=== PATIENT | female | born 1950 | race Caucasian/White ===

== ENCOUNTER 2019-01-12 10:48 | Emergency (ER) | payer MEDICARE, OTHER ==
[~2019-01-12] VITALS: Ht 160 cm; Wt 77.1 kg
[2019-01-12] MEDS ORDERED: 5-HTP100 MG PO (11:43)
[2019-01-12] MEDS ORDERED: VENTOLIN HFA18 GM INH (11:43)
[2019-01-12] MEDS ORDERED: INCRUSE ELLI62.5 MCG IH (11:43)
[2019-01-12] MEDS ORDERED: OMEPRAZOLE20 MG PO (11:43)
[2019-01-12] MEDS ORDERED: SYMBICORT 16010.2 GM INH (11:44)
[2019-01-12] MEDS ORDERED: MELATONIN5 M2 PO (11:45)
[2019-01-12] MEDS ORDERED: VALERIAN ROOT500 MG PO (11:45)
[2019-01-12] MEDS ORDERED: PREMARIN0.625 MG PO (11:46)
[2019-01-12] MEDS ORDERED: TIZANIDINE HCL4 M1 PO (11:46)
[2019-01-12] MEDS ORDERED: TIROSINT75 MCG PO (11:46)
[2019-01-12] MEDS ORDERED: CYTOMEL5 MCG PO (11:46)
[2019-01-12] MEDS ORDERED: MACROBID 100 M100 MG PO (13:42)
== END 2019-01-12 14:00 | disposition home or self-care (01) ==
LOC: ED 10:48
DX: N39.0 Urinary tract infection, site not specified (principal); R19.7 Diarrhea, unspecified; E03.9 Hypothyroidism, unspecified; J44.9 Chronic obstructive pulmonary disease, unspecified; Z87.891 Personal history of nicotine dependence; Z90.710 Acquired absence of both cervix and uterus; Z91.038 Other insect allergy status; Z88.0 Allergy status to penicillin; Z88.6 Allergy status to analgesic agent; Z88.1 Allergy status to other antibiotic agents; Z91.040 Latex allergy status; Z91.018 Allergy to other foods; Z91.09 Other allergy status, other than to drugs and biological substances; Z88.8 Allergy status to other drugs, medicaments and biological substances; Z79.899 Other long term (current) drug therapy
CPT/HCPCS: 74177; 80053; 81001; 82150; 83690; 84443; 85025; 87502; 96360; 99284-25; J7030; Q9967

== ENCOUNTER 2019-01-14 11:41 | Emergency (ER) | payer MEDICARE, OTHER ==
[~2019-01-14] VITALS: Ht 160 cm; Wt 77.1 kg
--- OUTSIDE RECORDS SUMMARY | ~2019-01-14 | XMS | Clinical Summary ---
Demographics + + + | Address | [facility] [address] | | | [place] [address] | + + + | Home Phone | | + + + | Preferred Language | Unknown | + + + | Marital Status | | + + + | Baptist Affiliation | 1009 | + + + | Race | Unknown | + + + | Ethnic Group | Unknown | + + + Author + + + | Author | [facility] | | | and [place] | + + + | Organization | [facility] | | | and [place] | + + + | Address | Unknown | + + + | Phone | Unavailable | + + + Support + + + + + | Name | Relationship | Address | Phone | + + + + + | Ria Nguyen | ECON | [address] | | | th A | | [place] [address] | | + + + + + | Dottie Nguyen | ECON | Unknown | Unavailable | | e | | | | + + + + + Care Team Providers + +------+ + | Care Small Battery Plate Assembler Name | Role | Phone | + +------+ + | King Naegl MD | PP | | + +------+ + Allergies + + + + + + | Active Allergy | Reactions | Severity | Noted | Comments | | | | | Date | | + + + + + + | Acetaminophen | Other (See Comments) | Low | 09/16/20 | Severe sweats | | | | | 16 | | + + + + + + | Adhesive & Tape | Hives | Medium | 09/30/20 | | | | | | 16 | | + + + + + + | Bee Venom | Itching | Medium | 09/30/20 | Every time there | | | | | 16 | is a larger and | | | | | | larger welt, now | | | | | | carries an epi-pen | + + + + + + | Celecoxib | Hives | Medium | 08/23/20 | | | | | | 16 | | + + + + + + | Gabapentin | Swelling | Medium | /11/19 | | | | | | 17 | | + + + + + + | Grapefruit | | | / | | | | | | 18 | | + + + + + + | Latex | Hives | Medium | / | | | | | | 16 | | + + + + + + | Lemon | Hives | | 11/11/19 | | | | | | 18 | | + + + + + + | Ewiiaapaayp | | | 11/13/19 | | | | | | 18 | | + + + + + + | Methocarbamol | Swelling, | High | 11/12/19 | Extreme shortness | | | Anaphylaxis | | 18 | of breath Had SOB | + + + + + + | Payette | Hives | Medium | 11/11/19 | | | | | | 18 | | + + + + + + | Oxycodone | Hives | Medium | 08/24/20 | | | | | | 16 | | + + + + + + | Penicillins | Hives, Nausea Only | Medium | 09/16/20 | | | | | | 16 | | + + + + + + | Pineapple | | | 11/13/19 | | | | | | 18 | | + + + + + + | Massillon | | | 11/13/19 | | | | | | 18 | | + + + + + + | Sulfa Antibiotics | | | | | + + + + + + | Tomato | | | 11/13/19 | | | | | | 18 | | + + + + + + Current Medications + + +--------+---------+------+------+-------+ | Prescription | Sig. | Disp. | Refills | Star | End | Statu | | | | | | t | Date | s | | | | | | Date | | | + + +--------+---------+------+------+-------+ | estrogens, | Take 0.625 mg by | | | | | Activ | | conjugated, | mouth Daily. | | | | | e | | (PREMARIN) 0.625 mg | | | | | | | | tablet | | | | | | | + + +--------+---------+------+------+-------+ | liothyronine | Take 5 mcg by mouth | | | | | Activ | | (CYTOMEL) 5 mcg | Daily. | | | | | e | | tablet | | | | | | | + + +--------+---------+------+------+-------+ | arformoterol | Take 15 mcg by | | | | | Activ | | (BROVANA) 15 MCG/2ML | nebulization Twice | | | | | e | | NEBU | Daily. | | | | | | + + +--------+---------+------+------+-------+ | levothyroxine | Take 100 mcg by | | | | | Activ | | (SYNTHROID, | mouth every morning | | | | | e | | LEVOTHROID) 100 mcg | (before breakfast). | | | | | | | tablet | | | | | | | + + +--------+---------+------+------+-------+ | VALERIAN ROOT PO | Take 400 mg by mouth | | | | | Activ | | | nightly. | | | | | e | + + +--------+---------+------+------+-------+ | tiZANidine | Take 1 tablet by | 90 | 3 | 12/0 | | Activ | | (ZANAFLEX) 4 mg | mouth every 6 hours | tablet | | 3/20 | | e | | tablet | as needed. | | | 16 | | | + + +--------+---------+------+------+-------+ | potassium chloride | Take 20 mEq by mouth | | 11 | 07/1 | | Activ | | (K-DUR) 20 mEq ER | as needed. | | | 8/20 | | e | | tablet | | | | 17 | | | + + +--------+---------+------+------+-------+ | INCRUSE ELLIPTA | Inhale 1 puff into | | 11 | 08/1 | | Activ | | 62.5 MCG/INH inhaler | the lungs Daily. | | | 7/20 | | e | | | | | | 17 | | | + + +--------+---------+------+------+-------+ | HYDROmorphone | Take 4 mg by mouth | | | | | Activ | | (DILAUDID) 4 MG | every 6 hours as | | | | | e | | tablet | needed for Pain. | | | | | | + + +--------+---------+------+------+-------+ | melatonin 5 mg | Take by mouth | | | | | Activ | | tablet | nightly as needed | | | | | e | | | for Insomnia. | | | | | | + + +--------+---------+------+------+-------+ Active Problems + + + | Problem | Noted Date | + + + | Acute bronchitis | 08/08/2018 | + + + | Chronic obstructive lung disease (HCC) | 08/08/2018 | + + + | Chronic pain | 08/08/2018 | + + + | Dyspnea | 08/08/2018 | + + + | Environmental allergies | 08/08/2018 | + + + | Exacerbation of asthma | 08/08/2018 | + + + | Obstructive sleep apnea syndrome | 08/08/2018 | + + + | Pneumonia | 08/08/2018 | + + + | Disorder of adrenal gland (HCC) | 03/21/2018 | + + + | Primary fibromyalgia syndrome | 03/21/2018 | + + + | S/P cervical spinal fusion | 02/01/2018 | + + + | Hypoxemia requiring supplemental oxygen | 11/12/2017 | + + + | H/O allergy to latex | 11/11/2017 | + + + | Chronic narcotic dependence - fentaNYL (DURAGESIC) Patch | 11/11/2017 | + + + | COPD (chronic obstructive pulmonary disease) (HCC) | 11/11/2017 | + + + + + | Overview: Overview: | | FEV1 of 72% 11/28/13 | + + + + + | Pain of left lower leg | 11/02/2017 | + + + | Lower leg pain | 11/02/2017 | + + + | Cervical subluxation, subsequent encounter | 09/17/2017 | + + + | Adrenal insufficiency (HCC) | 09/30/2016 | + + + | Current chronic use of systemic steroids | 09/30/2016 | + + + | Foraminal stenosis of cervical region | 09/16/2016 | + + + | Spondylolisthesis of lumbar region | 08/24/2016 | + + + | Lumbar radiculopathy | 08/24/2016 | + + + | Lumbar facet arthropathy | 08/24/2016 | + + + | Foraminal stenosis of lumbar region | 08/24/2016 | + + + | Cervical radiculopathy | 08/24/2016 | + + + + + | Overview: Cervical radiculopathy (M54.12), | | Cervical myelopathy (HCC) (G95.9), | | Foraminal stenosis of cervical region (M99.81), | | Cervical subluxation, subsequent encounter (S13.100D), | | Sacroiliac joint pain (M53.3) | + + + + + | Cervical myelopathy (HCC) | 08/24/2016 | + + + | Obesity, Class III, BMI 40-49.9 (Morbid obesity) | 08/24/2016 | + + + | Asthma - INHALERS Used | 03/08/2014 | + + + | Empyema lung (HCC) | 03/08/2014 | + + + | Obstructive chronic bronchitis with exacerbation (HCC) | 02/26/2014 | + + + | Acute kidney injury (HCC) | 02/24/2014 | + + + | Acute respiratory failure (HCC) | 02/24/2014 | + + + | Exudative pleural effusion | 02/24/2014 | + + + | Leucocytosis | 02/24/2014 | + + + | Cough | 10/31/2012 | + + + | JORGE (obstructive sleep apnea) on CPAP | | + + + + + | Overview: On CPAP. On day of surgery 09/30/2016 for TLIF, | | patient acknowledges she has been using much less frequently | | lately. | + + + +---+ | Hypothyroidism | | + +---+ | H/O Migraine headaches | | + +---+ | Anxiety | | + +---+ | DDD (degenerative disc disease), lumbar | | + +---+ | Post traumatic stress disorder (PTSD) | | + +---+ | Chronic insomnia | | + +---+ | Fibromyalgia | | + +---+ | Sacroiliac joint pain | | + +---+ | Other spondylosis with radiculopathy, lumbar region | | + +---+ + + | Overview: WITH LEFT FOOT DROP | + + + +---+ | Spinal stenosis, lumbar region | | + +---+ + + | Overview: Problem List Wildlife Biologist Utility | + + + +---+ | Other intervertebral disc degeneration, lumbar region | | + +---+ Immunizations + + + + | Name | Dates Previously Given | Next Due | + + + + | INFLUENZA, | 08/20/2014 | | | UNSPECIFIED | | | | FORMULATION | | | + + + + Family History + + +------+ + | Medical History | Relation | Name | Comments | + + +------+ + | COPD | Brother | | | + + +------+ + | Cancer | Brother | | New since last visit 11/02/17, lung | + + +------+ + | No Known Problems | Child | | | + + +------+ + | No Known Problems | Child | | | + + +------+ + | No Known Problems | Child | | | + + +------+ + | Diabetes | Father | | | + + +------+ + | Heart disease | Maternal | | | | | Grandfath | | | | | er | | | + + +------+ + | Heart disease | Maternal | | | | | Grandmoth | | | | | er | | | + + +------+ + | No Known Problems | Mother | | | + + +------+ + | Alcohol abuse | Paternal | | | | | Grandfath | | | | | er | | | + + +------+ + | Cancer | Paternal | | CANCER | | | Grandfath | | | | | er | | | + + +------+ + | Diabetes | Paternal | | | | | Grandmoth | | | | | er | | | + + +------+ + | Breast cancer | Sister | | | + + +------+ + | Fibromyalgia | Sister | | | + + +------+ + | Fibromyalgia | Sister | | | + + +------+ + | Fibromyalgia | Sister | | | + + +------+ + + +------+ + + | Relation | Name | Status | Comments | + +------+ + + | Brother | | Alive | | + +------+ + + | Brother | | | | + +------+ + + | Brother | | | | + +------+ + + | Child | | Alive | | + +------+ + + | Child | | Alive | | + +------+ + + | Child | | Alive | | + +------+ + + | Child | | | | + +------+ + + | Child | | | | + +------+ + + | Child | | | | + +------+ + + | Father | | | | | | | (Age | | | | | 75) | | + +------+ + + | Maternal Grandfather | | | | + +------+ + + | Maternal Grandmother | | | | | | | (Age | | | | | 78) | | + +------+ + + | Mother | | Other | NOT LISTED | + +------+ + + | Paternal Grandfather | | | | + +------+ + + | Paternal Grandmother | | | | | | | (Age | | | | | 76) | | + +------+ + + | Sister | | Alive | | + +------+ + + | Sister | | Alive | | + +------+ + + | Sister | | Alive | | + +------+ + + | Sister | | | | + +------+ + + | Sister | | | | + +------+ + + | Sister | | | | + +------+ + + | Sister | | | | + +------+ + + Social History + + + +--------+ + | Tobacco Use | Types | Packs/Day | Years | Date | | | | | Used | | + + + +--------+ + | Former Smoker | Cigarettes | 1 | 25 | Quit: 10/31/1998 | + + + +--------+ + + +---+---+---+ | Smokeless Tobacco: | | | | | Never Used | | | | + +---+---+---+ + + +---------+ + | Alcohol Use | Drinks/We | oz/Week | Comments | | | ek | | | + + +---------+ + | Yes | 0 | 0.0 | SOCIAL | | | Standard | | | | | drinks or | | | | | | | | | | equivalen | | | | | t | | | + + +---------+ + + + + | Sex Assigned at | Date Recorded | | | | + + + | Not on file | | + + + Last Filed Vital Signs + + + + | Vital Sign | Reading | Time Taken | + + + + | Blood Pressure | 110/42 | 08/08/20181109 PDT | + + + + | Pulse | 56 | 08/08/20181109 PDT | + + + + | Temperature | 35.7 C (96.3 F) | 11/13/2017721 PST | + + + + | Respiratory Rate | 18 | 11/13/2017947 PST | + + + + | Oxygen Saturation | 96% | 11/13/2017947 PST | + + + + | Inhaled Oxygen | - | - | | Concentration | | | + + + + | Weight | 93.9 kg (207 lb) | 08/08/20181109 PDT | + + + + | Height | 160 cm (5' 3") | 08/08/20181109 PDT | + + + + | Body Mass Index | 36.67 | 08/08/20181109 PDT | + + + + Plan of Treatment + + + + + | Health Maintenance | Due Date | Last Done | Comments | + + + + + | Hepatitis C | | | | | Screening | 0 | | | + + + + + | Vaccine: | | | | | Dtap/Tdap/Td (1 - | 9 | | | | Tdap) | | | | + + + + + | BREAST CANCER | | | | | SCREENING (MAMM Q2 | 0 | | | | YEARS 50-74) | | | | + + + + + | Colorectal Cancer | | | | | Screening | 0 | | | | (Colonoscopy) | | | | + + + + + | Vaccine: Zoster (1 | | | | | of 2) | 0 | | | + + + + + | Vaccine: | | | | | Pneumococcal 65+ | 5 | | | | Low/Medium Risk (1 | | | | | of 2 - PCV13) | | | | + + + + + | Adult Annual | | | | | Wellness Visit | 6 | | | + + + + + | Vaccine: Influenza | | 08/20/2014 | | | (#1) | 8 | | | + + + + + Implants + +--------+--------+ +--------+--------+--------+ | Implanted | Type | Area | Manufacture | Device | Expira | Model | | | | | r | | tion | / | | | | | | Identi | Date | Serial | | | | | | fier | | / Lot | + +--------+--------+ +--------+--------+--------+ | Bone Canc Chip 15cc 4-10mm - | Bone | Left: | RTI | | 05/28/ | [id number] | | [id number]: Qty: 1 | | Spine | BIOLOGICS | | 2020 | | | on 09/30/2016 by Ric Gould | | Lumbar | INC - RBIO | | | /[id number] | | MD Ramos | | | | | | 2-028 | | | | | | | | / | + +--------+--------+ +--------+--------+--------+ | Imp Spn Spcr 6 Deg 10x27 - | Generi | Left: | [employer] - | | 03/30/ | [id number] | | [id number]: Qty: 1 on | c | Spine | MEDT | | 4 | 7 / | | 09/30/2016 by Ric Gould, | | Lumbar | | | | /51CC | | MD | | | | | | | + +--------+--------+ +--------+--------+--------+ | Parth Perc Str Ccm 4.85i07tc - | Generi | Left: | [employer] - | | | [id number] | | [id number]: Qty: 2 on | c | Spine | MEDT | | | 035 / | | 09/30/2016 by Ric Gould, | | Lumbar | | | | / | | MD | | | | | | | + +--------+--------+ +--------+--------+--------+ | Imp Spn Plt Ti Zevo 19mm 1lvl | Generi | N/A: | [employer] - | | | [id number] | | - [id number]: Qty: 1 | c | Spine | MEDT | | | 9 / / | | on 11/11/2017 by Ric Gould | | Cervic | | | | | | MD Ramos | | al | | | | | + +--------+--------+ +--------+--------+--------+ | Imp Sangeeta Shore [id number] - | Generi | N/A: | [employer] - | | 07/26/ | [id number] | | [id number]: Qty: 1 | c | Spine | MEDT | | 2024 | 1 / | | on 11/11/2017 by Ric Gould | | Bill | | | | /[id number] | | MD Ramos | | al | | | | | + +--------+--------+ +--------+--------+--------+ | Graft Infuse Bone Kit Xs - | Graft | Left: | SOFAMOR | | 09/29/ | [id number] | | [id number]: Qty: 1 on | | Spine | DANEK - DIV | | 2016 | 0 / | | 09/30/2016 by Ric Gould, | | Lumbar | [employer] | | | /[id number] | | | | | - SFDK | | | [id number] | + +--------+--------+ +--------+--------+--------+ | Sb Alan Pls c Aseptic | Graft | N/A: | [employer] - | | 04/15/ | [id number] | | - [id number]: Qty: | | Spine | MEDT | | 2019 | | | 1 on 11/11/2017 by Bryanna, | | Tanoic | | | | /[id number] | | Ric Beasley MD | | al | | | | 9-050 | | | | | | | | / | + +--------+--------+ +--------+--------+--------+ | Screw Set Slra Perc Ti 4.75 - | Screw | Left: | [employer] - | | | [id number] | | [id number]: Qty: 4 | | Spine | MEDT | | | 0 / / | | on 09/30/2016 by Ric Gould | | Lumbar | | | | | | MD Ramos | | | | | | | + +--------+--------+ +--------+--------+--------+ | Screw 4.75 Xtb Yudelka Mas | Screw | Left: | [employer] - | | | [id number] | | 7.5x50 - [id number]: | | Spine | MEDT | | | [id number] | | Qty: 4 on 09/30/2016 by Bryanna, | | Lumbar | | | | / / | | Ric Beasley MD | | | | | | | + +--------+--------+ +--------+--------+--------+ | Screw D-Thrd Slf-Drl 3.5x13mm | Screw | N/A: | [employer] - | | | [id number] | | - [id number]: Qty: 4 | | Spine | MEDT | | | 3 / / | | on 11/11/2017 by Ric Gould | | Bill | | | | | | MD Ramos | | al | | | | | + +--------+--------+ +--------+--------+--------+ Results Not on filefrom Last 3 Months Insurance + +--------+ +--------+ +---------+ | Payer | Benefi | Subscriber | Type | Phone | Address | | | t Plan | ID | | | | | | / | | | | | | | Group | | | | | + +--------+ +--------+ +---------+ | MEDICARE | MEDICA | [id number] | Medica | [phone] | | | RE | | re | [phone] | | | | PART A | | | | | | | AND B | | | | | + +--------+ +--------+ +---------+ | | CHAMPV | [id number] | Indemn | [phone] | | | A | | ity | [phone] | | + +--------+ +--------+ +---------+ + +--------+ +--------+ + + | Guarantor Name | Accoun | Relation to | Date | Phone | Billing Address | | | t Type | Patient | of | | | | | | | | | | + +--------+ +--------+ + + | SWETHA NGUYEN | Person | Self [birth year] Home: | [address] | | [place] | al/Emmanuel | | 1950 | [phone] | [place] [address] | | | humble | | | [phone] | | + +--------+ +--------+ + +
--- OUTSIDE RECORDS SUMMARY | ~2019-01-14 | XMS | Encounter Summary ---
Demographics + + + | Address | [facility] [address] | | | [place] [address] | + + + | Home Phone | | + + + | Preferred Language | Unknown | + + + | Marital Status | | + + + | Yarsani Affiliation | 1009 | + + + | Race | Unknown | + + + | Ethnic Group | Unknown | + + + Author + + + | Author | [facility] [employer] | + + + | Organization | [facility] [employer] | + + + | Address | Unknown | + + + | Phone | Unavailable | + + + Support + + + + + | Name | Relationship | Address | Phone | + + + + + | James Nguyen | [address] | | | [place] | | [place] [address] | | + + + + + | Dottie Nguyen | ECON | Unknown | | | e | | | | + + + + + | Maria Alejandra Almonte | ECON | Unknown | | + + + + + | Hema Nagel | ECON | Unknown | | + + + + + Care Team Providers + +------+ + | Care Tongue Trimmer Name | Role | Phone | + +------+ + | Elia Hernandez MD | PCP | | + +------+ + Reason for Visit +--------+ + | Reason | Comments | +--------+ + | Triage | thyroid crisis | +--------+ + Encounter Details +--------+ + + + + | Date | Type | Department | Care Team | Description | +--------+ + + + + | 01/12/ | Telephone | [facility] | Adri Cannon MD | Triage (thyroid | | 2019 | | Endocrinology [address] | [address] | crisis) | | | | [address] | [place], [place] | | | | | [place], [place] | [address] | | | | | [address] | | | | | | [phone] | | | +--------+ + + + + Social History + +-------+ +--------+ + | Tobacco Use | Types | Packs/Day | Years | Date | | | | | Used | | + +-------+ +--------+ + | Former Smoker | | 1 | 30 | Quit: 02/24/1999 | + +-------+ +--------+ + + +---+---+---+ | Smokeless Tobacco: | | | | | Never Used | | | | + +---+---+---+ + + +---------+ + | Alcohol Use | Drinks/We | oz/Week | Comments | | | ek | | | + + +---------+ + | No | | | | + + +---------+ + + + + | Sex Assigned at | Date Recorded | | | | + + + | Not on file | | + + + as of this encounter Plan of Treatment +--------+---------+ + + + | Date | Type | Specialty | Care Team | Description | +--------+---------+ + + + | 03/20/ | Office | Endocrinology | Adri Cannon MD | | | 2019 | Visit | | [address] | | | | | | [place] | | | | | | [id number] | | | | | | | | +--------+---------+ + + + as of this encounter Visit Diagnoses Not on filein this encounter"
--- OUTSIDE RECORDS SUMMARY | ~2019-01-14 | XMS | Encounter Summary ---
Demographics + + + | Address | [facility] [address] | | | [place] [address] | + + + | Home Phone | | + + + | Preferred Language | Unknown | + + + | Marital Status | | + + + | Jain Affiliation | 1009 | + + + | Race | Unknown | + + + | Ethnic Group | Unknown | + + + Author + + + | Author | [facility] [employer] [facility] | + + + | Organization | [facility] [employer] [facility] | + + + | Address | Unknown | + + + | Phone | Unavailable | + + + Support + + + + + | Name | Relationship | Address | Phone | + + + + + | James Nguyen | [address] | | | [place] | | [place] [address] | | + + + + + [...] Team Providers + +------+ + | Care Glue Drier Operator Name | Role | Phone | + +------+ + | Elia Hernandez MD | PCP | | + +------+ + Reason for Visit + + + | Reason | Comments | + + + | Medication Refill | | + + + Encounter Details +--------+--------+ + + + | Date | Type | Department | Care Team | Description | +--------+--------+ + + + | 12/18/ | Refill | [facility] | Adri Cannon MD | Hot flash, | | 2019 | | Endocrinology [address] | [address] | demetria | | | | [place] [address] | [place], [place] | | | | | [place], [place] | [address] | | | | | [address] | | | | | | [phone] | | | +--------+--------+ + + + Social History + +-------+ [...] [place] | | | | | | [address] | | | | | | | | +--------+---------+ + + + as of this encounter Visit Diagnoses + + | Diagnosis | + + | Hot flash, menopausal | + + | Symptomatic menopausal or female climacteric states | + +"
--- OUTSIDE RECORDS SUMMARY | ~2019-01-14 | XMS | Encounter Summary ---
Demographics + + + | Address | [facility] [address] | | | [place] [address] | + + + | Home Phone | | + + + | Preferred Language | Unknown | + + + | Marital Status | | + + + | Quaker Affiliation | 1009 | + + + | Race | Unknown | + + + | Ethnic Group | Unknown | + + + Author + + + | Author | [facility] | + + + | Organization | [facility] | + + + | Address | Unknown | + + + | Phone | Unavailable | + + + Support + + + + + | Name | Relationship | Address | Phone | + + + + + | James Nguyen | [address] | | | [place] | | [place] [address] | | + + + + + [...] Team Providers + +------+ + | Care Resident Service Coordinator Name | Role | Phone | + +------+ + | Elia Hernandez MD | PCP | | + +------+ + Encounter Details +--------+ + + + + | Date | Type | Department | Care Team | Description | +--------+ + + + + | 11/07/ | Lab | [facility] | Valeria Johnson | Postoperative | | 2019 | Requisition | [address] | A, Data Quality Consultant | hypothyroidism; | | | | [place] [address] | | History of adrenal | | | | [phone] | | insufficiency; | | | | | | Osteopenia of spine | +--------+ + + + + Social [...] + + + as of this encounter Progress Notes Adri Cannon MD - 11/07/2018 9:30 AM Lore morales at appt 11/14in this encounter Plan of Treatment +--------+---------+ + + + | Date | Type | Specialty | Care Team | Description | +--------+---------+ + + + | 03/20/ | Office | Endocrinology | Adri Cannon MD | | | 2019 | Visit | | [address] | | | | | | [place] | | | | | | [address] | | | | | | | | +--------+---------+ + + + as of this encounter Procedures + +--------+ + + + | Procedure Name | Priori | Date/Time | Associated Diagnosis | Comments | | | ty | | | | + +--------+ + + + | CORTISOL, AM | Routin | 11/07/2018 | Postoperative | Results for this | | | e | 9:40 AM | hypothyroidism | procedure are in the | | | | PST | History of adrenal | results section. | | | | | insufficiency | | | | | | Osteopenia of spine | | + +--------+ + + + | ACTH | Routin | 11/07/2018 | Postoperative | Results for this | | | e | 9:40 AM | hypothyroidism | procedure are in the | | | | PST | History of adrenal | results section. | | | | | insufficiency | | | | | | Osteopenia of spine | | + +--------+ + + + | CBC W/AUTO DIFF | Routin | 11/07/2018 | Postoperative | Results for this | | (REFLEX TO MANUAL) | e | 9:40 AM | hypothyroidism | procedure are in the | | | | PST | History of adrenal | results section. | | | | | insufficiency | | | | | | Osteopenia of spine | | + +--------+ + + + | T3, FREE | Routin | 11/07/2018 | Postoperative | Results for this | | | e | 9:40 AM | hypothyroidism | procedure are in the | | | | PST | History of adrenal | results section. | | | | | insufficiency | | | | | | Osteopenia of spine | | + +--------+ + + + | TSH | Routin | 11/07/2018 | Postoperative | Results for this | | | e | 9:40 AM | hypothyroidism | procedure are in the | | | | PST | History of adrenal | results section. | | | | | insufficiency | | | | | | Osteopenia of spine | | + +--------+ + + + | T4, FREE | Routin | 11/07/2018 | Postoperative | Results for this | | | e | 9:40 AM | hypothyroidism | procedure are in the | | | | PST | History of adrenal | results section. | | | | | insufficiency | | | | | | Osteopenia of spine | | + +--------+ + + + | COMPREHENSIVE | Routin | 11/07/2018 | Postoperative | Results for this | | METABOLIC PANEL | e | 9:40 AM | hypothyroidism | procedure are in the | | | | PST | History of adrenal | results section. | | | | | insufficiency | | | | | | Osteopenia of spine | | + +--------+ + + + in this encounter Results Cortisol, AM (11/07/2018 9:40 AM) + +-------+ + + | Component | Value | Ref Range | Performed At | + +-------+ + + | CORTISOL, AM | 19.6 | 4.3 - 22.4 ug/dL | [facility] | | | | | LABORATORY | + +-------+ + + + + + + + | Performing | Address | City/State/Zipcode | Phone Number | | Organization | | | | + + + + + | [facility] | [address] | [place] [address] | [phone] | | LABORATORY | [address] | | | + + + + + ACTH assay (11/07/2018 9:40 AM) + + + + + | Component | Value | Ref Range | Performed At | + + + + + | [facility] | 11.6Comment: Reference | pg/mL | LABORATORY | | | range: 7.2 to 63.3ACTH | | [facility] | | | reference interval for | | [facility] | | | samples collected | | | | | between 7 and 10 AM. | | | + + + + + + + | Specimen | + + | Blood | + + + + + + + | Performing | Address | City/State/Zipcode | Phone Number | | Organization | | | | + + + + + | LABORATORY | [address] | [place] [address] | | | [facility] | | | | | [facility] | | | | + + + + + Free T3 (11/07/2018 9:40 AM) + +-------+ + + | Component | Value | Ref Range | Performed At | + +-------+ + + | FREE T3 | 2.4 | 2.18 - 3.98 pg/mL | [facility] | | | | | LABORATORY | + +-------+ + + + + | Specimen | + + | Blood | + + + + + + + | Performing | Address | City/State/Zipcode | Phone Number | | Organization | | | | + + + + + | [facility] | [address] | [place] [address] | [phone] | | LABORATORY | [address] | | | + + + + + Free T4 (11/07/2018 9:40 AM) + +-------+ + + | Component | Value | Ref Range | Performed At | + +-------+ + + | FREE T4 | 1.1 | 0.7 - 1.5 ng/dL | [facility] | | | | | LABORATORY | + +-------+ + + + + | Specimen | + + | Blood | + + + + + + + | Performing | Address | City/State/Zipcode | Phone Number | | Organization | | | | + + + + + | [facility] | [address] | [place] [address] | [phone] | | LABORATORY | [address] | | | + + + + + TSH (11/07/2018 9:40 AM) + + + + + | Component | Value | Ref Range | Performed At | + + + + + | TSH | 0.348 (L) | 0.450 - 5.100 | [facility] | | | | u[iU]/mL | LABORATORY | + + + + + + + | Specimen | + + | Blood | + + + + + + + | Performing | Address | City/State/Zipcode | Phone Number | | Organization | | | | + + + + + | [facility] | [address] | [place] [address] | [phone] | | LABORATORY | [address] | | | + + + + + CBC w/auto diff (reflex to manual) (11/07/2018 9:40 AM) + + + + + | Component | Value | Ref Range | Performed At | + + + + + | WBC | 5.04 | 3.80 - 11.00 10*3/uL | [facility] | | | | | LABORATORY | + + + + + | RBC | 4.39 | 3.70 - 5.10 10*6/uL | [facility] | | | | | LABORATORY | + + + + + | HGB | 14.0 | 11.3 - 15.5 g/dL | [facility] | | | | | LABORATORY | + + + + + | HCT | 42.2 | 34.0 - 46.0 % | [facility] | | | | | LABORATORY | + + + + + | MCV | 96.2 | 80.0 - 100.0 fL | [facility] | | | | | LABORATORY | + + + + + | MCH | 31.9 | 27.0 - 34.0 pg | [facility] | | | | | LABORATORY | + + + + + | MCHC | 33.1 | 32.0 - 35.5 g/dL | [facility] | | | | | LABORATORY | + + + + + | RDW SD | 45.5 | 37 - 53 fL | [facility] | | | | | LABORATORY | + + + + + | PLT | 177 | 150 - 400 10*3/uL | [facility] | | | | | LABORATORY | + + + + + | MPV | 10.1 | fL | [facility] | | | | | LABORATORY | + + + + + | DIFF TYPE | AUTOMATED | | [facility] | | | | | LABORATORY | + + + + + | NEUTROPHILS | 70.04 | % | [facility] | | | | | LABORATORY | + + + + + | LYMPHOCYTES | 20.69 | % | [facility] | | | | | LABORATORY | + + + + + | MONOCYTES | 7.51 | % | [facility] | | | | | LABORATORY | + + + + + | EOSINOPHILS | 0.92 | % | [facility] | | | | | LABORATORY | + + + + + | BASOPHILS | 0.84 | % | [facility] | | | | | LABORATORY | + + + + + | NEUTROPHILS ABS | 3.53 | 1.90 - 7.40 10*3/uL | [facility] | | | | | LABORATORY | + + + + + | LYMPHOCYTES ABS | 1.04 | 1.00 - 3.90 10*3/uL | [facility] | | | | | LABORATORY | + + + + + | MONOCYTES ABS | 0.38 | 0.00 - 0.80 10*3/uL | [facility] | | | | | LABORATORY | + + + + + | EOSINOPHILS ABS | 0.05 | 0.00 - 0.50 10*3/uL | [facility] | | | | | LABORATORY | + + + + + | BASOPHILS ABS | 0.04 | 0.00 - 0.10 10*3/uL | [facility] | | | | | LABORATORY | + + + + + + + | Specimen | + + | Blood | + + + + + + + | Performing | Address | City/State/Zipcode | Phone Number | | Organization | | | | + + + + + | [facility] | [address] | [place] [address] | [phone] | | LABORATORY | [address] | | | + + + + + Comprehensive metabolic panel (11/07/2018 9:40 AM) + + + + + | Component | Value | Ref Range | Performed At | + + + + + | SODIUM | 139 | 135 - 145 mmol/L | [facility] | | | | | LABORATORY | + + + + + | POTASSIUM | 4.4 | 3.5 - 4.9 mmol/L | [facility] | | | | | LABORATORY | + + + + + | CHLORIDE | 103 | 99 - 109 mmol/L | [facility] | | | | | LABORATORY | + + + + + | CO2 | 22 (L) | 23 - 32 mmol/L | [facility] | | | | | LABORATORY | + + + + + | ANION GAP AGAP | 18 | 5 - 20 mmol/L | [facility] | | | | | LABORATORY | + + + + + | GLUCOSE | 87 | 65 - 99 mg/dL | [facility] | | | | | LABORATORY | + + + + + | BUN | 17 | 8 - 25 mg/dL | [facility] | | | | | LABORATORY | + + + + + | CREATININE | 0.8 | 0.50 - 1.00 mg/dL | [facility] | | | | | LABORATORY | + + + + + | BUN/CREAT | 21 | | [facility] | | | | | LABORATORY | + + + + + | CALCIUM | 9.0 | 8.5 - 10.5 mg/dL | [facility] | | | | | LABORATORY | + + + + + | TOTAL PROTEIN | 6.7 | 6.3 - 8.2 g/dL | [facility] | | | | | LABORATORY | + + + + + | Albumin | 3.7 | 3.3 - 4.8 g/dL | [facility] | | | | | LABORATORY | + + + + + | GLOBULIN | 3.0 | 1.3 - 4.9 g/dL | [facility] | | | | | LABORATORY | + + + + + | A/G | 1.2 | 1.0 - 2.4 | [facility] | | | | | LABORATORY | + + + + + | TBIL | 0.5 | 0.1 - 1.5 mg/dL | [facility] | | | | | LABORATORY | + + + + + | ALK PHOS | 56 | 35 - 115 U/L | [facility] | | | | | LABORATORY | + + + + + | AST | 22 | 10 - 45 U/L | [facility] | | | | | LABORATORY | + + + + + | ALT | 33 | 10 - 65 U/L | [facility] | | | | | LABORATORY | + + + + + | EGFR | >60Comment: GFR <60: | >60 mL/min/1.73_m2 | [facility] | | | CHRONIC KIDNEY DISEASE, | | LABORATORY | | | IF FOUND OVER A 3 MONTH | | | | | PERIOD. GFR <15: KIDNEY | | | | | FAILURE. FOR | | | | | AMERICANS, MULTIPLY THE | | | | | CALCULATED GFR BY 1.210. | | | | | This eGFR is calculated | | | | | using the MDRD IDMS | | | | | traceable equation. | | | + + + + + + + | Specimen | + + | Blood | + + + + + + + | Performing | Address | City/State/Zipcode | Phone Number | | Organization | | | | + + + + + | [facility] | [address] | [place] [address] | [phone] | | LABORATORY | [address] | | | + + + + + in this encounter Visit Diagnoses + + | Diagnosis | + + | Postoperative hypothyroidism | + + | Postsurgical hypothyroidism | + + | History of adrenal insufficiency | + + | Personal history of other endocrine, metabolic, and immunity disorders | + + | Osteopenia of spine | + +"
--- OUTSIDE RECORDS SUMMARY | ~2019-01-14 | XMS | Encounter Summary ---
Demographics + + + | Address | [facility] [address] | | | [place] [address] | + + + | Home Phone | | + + + | Preferred Language | Unknown | + + + | Marital Status | | + + + | Roman Catholic Affiliation | 1009 | + + + | Race | Unknown | + + + | Ethnic Group | Unknown | + + + Author + + + | Author | [facility] | + + + | Organization | [facility] | + + + | Address | Unknown | + + + | Phone | Unavailable | + + + Support + + + + + | Name | Relationship | Address | Phone | + + + + + | James Nguyen | [address] | | | [place] | | [place] [address] | | + + + + + [...] Team Providers + +------+ + | Care Medical Data Entry Clerk Name | Role | Phone | + [...] + + | 12/18/ | Refill | [facility] | Adri Cannon MD | Hot flash, | | 2019 | | Endocrinology [address] | [address] | [place] | | | | [place] | [place], [place] | | | | | [place], [place] | [address] | | | | | [address] | | | | | | [phone] | | | +--------+--------+ + + + [...] [place] | | | | | | [address] | | | | | | | | +--------+---------+ + + + as of this encounter Visit Diagnoses + + | Diagnosis | + + | Hot flash, menopausal | + + | Symptomatic menopausal or female climacteric states | + +"
--- OUTSIDE RECORDS SUMMARY | ~2019-01-14 | XMS | Encounter Summary ---
Demographics + + + | Address | [facility] [address] | | | [place] [address] | + + + | Home Phone | | + + + | Preferred Language | Unknown | + + + | Marital Status | | + + + | Samaritan Affiliation | 1009 | + + + | Race | Unknown | + + + | Ethnic Group | Unknown | + + + Author + + + | Author | [facility] | + + + | Organization | [facility] | + + + | Address | Unknown | + + + | Phone | Unavailable | + + + Support + + + + + | Name | Relationship | Address | Phone | + + + + + | James Nguyen | [address] | | | [place] | | [place] [address] | | + + + + + [...] Team Providers + +------+ + | Care Gas Welder Apprentice Name | Role | Phone | + [...] + + | 01/12/ | Telephone | [facility] | Adri Cannon MD | Triage (thyroid | | 2019 | | Endocrinology [address] | [address] | crisis) | | | | [place] | [place], [place] | | | | | [place], [place] | [address] | | | | | [address] | | | | | | [phone] | | | +--------+ + + + [...] [place] | | | | | | [address] | | | | | | | | +--------+---------+ + + + as of this encounter Visit Diagnoses Not on filein this encounter"
--- OUTSIDE RECORDS SUMMARY | ~2019-01-14 | XMS | Encounter Summary ---
Demographics + + + | Address | [facility] [address] | | | [place] [address] | + + + | Home Phone | | + + + | Preferred Language | Unknown | + + + | Marital Status | | + + + | Yazidi Affiliation | [id number] | + + + | Race | Unknown | + + + | Ethnic Group | Unknown | + + + Author + + + | Author | [facility] | + + + | Organization | [facility] | + + + | Address | Unknown | + + + | Phone | Unavailable | + + + Support + + + + + | Name | Relationship | Address | Phone | + + + + + | James Nguyen | [address] | | | [place] | | [place] [address] | | + + + + + [...] Team Providers + +------+ + | Care Sales Engagement Executive Name | Role | Phone | + +------+ + | Elia Hernandez MD | PCP | | + +------+ + Reason for Visit + + + | Reason | Comments | + + + | Hypothyroidism | | + + + Encounter Details +--------+---------+ + + + | Date | Type | Department | Care Team | Description | +--------+---------+ + + + | 11/14/ | Office | [facility] | Adri Cannon MD | Postoperative | | 2019 | Visit | Endocrinology [address] | [address] | hypothyroidism | | | | [address] | [place], [place] | (Primary Dx); | | | | [place], [place] | [address] | History of adrenal | | | | [id number] | | insufficiency; | | | | [phone] | | Osteopenia of spine | +--------+---------+ + + + Social History + +-------+ [...] + + + as of this encounter Last Filed Vital Signs + + + + | Vital Sign | Reading | Time Taken | + + + + | Blood Pressure | 116/62 | 11/14/2018 10:16 AM PST | + + + + | Pulse | 66 | 11/14/2018 10:16 AM PST | + + + + | Temperature | - | - | + + + + | Respiratory Rate | - | - | + + + + | Oxygen Saturation | 96% | 11/14/2018 10:16 AM PST | + + + + | Inhaled Oxygen | - | - | | Concentration | | | + + + + | Weight | 85.3 kg (188 lb) | 11/14/2018 10:16 AM PST | + + + + | Height | - | - | + + + + | Body Mass Index | 32.27 | 11/14/2018 10:16 AM PST | + + + + in this encounter Instructions Patient Instructions - Adri Cannon MD - 11/14/2018 10:30 AM PSTDecrease 6.5 pills per [place] of the 75mcg levothyroxine tabs. Im in favor of a weaning trial of the estrogen. Return in February with fasting am labs priorin this encounter Progress Notes Adri Cannon MD - 11/14/2018 10:30 AM PSTFormatting of this note may be different from t he original. Subjective: Patient ID: Swetha Nguyen is a 68 y.o. female with PMHx significant hypothyroidism , COPD, asthma here for evaluation and management of hypothyroidism, adrenal insufficiency, postmenopausal hot flashes, c/o fatigue Last seen 07/18/18 Interval events: "mckenna had more body pains in the last 3 months than I have for the past." No further tremors. Weight down another 10 pounds. Targeting another 35 pounds, - total of 85+ pounds down tota l. Getting off steroids and cymbalta really helped with weight loss "I know I dont want the pain meds, but without it I have no life. Just a week ago started b uprenorphine, that seems to be working quite well." Labs in Aug 2017 after tapering off the steroids showed normal ACTH and cortisol. "The whol e process went just fine. I didn't feel any particular change in anything at that time. I di dn't feel any less tired. I did lose swelling." Had DEXA Jul 2017 = normal BMD AND even significant increase compared to prior DEXA in 2014 . Had a fall last week, "I landed on one of my knees, once I get down I cant get up. Nothing is broken, I wasn't paying attention." BP stable. Still taking the estrogen 0.625 premarin EVERY OTHER DAY as of last week - "that seems to be me doing well." Again discussed that there are potential consequences. Pt still wishes to continue the premarin. "I might just drop it if Im not feeling any different" Does not tolerate gabapentin 2/2 swelling Current medications -LT4 levothyroxine 75mcg daily -LT3 5mcg daily Adherence: 99% Administration: proper Sleep - improving with CPAP and valerian Does not see a signing agent Accompanied by Thyroid Problem Presents for follow-up visit. Symptoms include anxiety, fatigue and heat intolerance. Patie nt reports no cold intolerance, constipation, diaphoresis, diarrhea, palpitations or tremors . Menstrual problem: s/p hysterec. Past treatments include levothyroxine. PREVIOUSLY OBTAINED MEDICATION At age 15 yo started to lose hair and had dry skin Was officially diagnosed after her son was born. Started medication at that time (approx ag e 21) Did well for 8 years - then had another child - then started developing spells "id be jitte ry and then it would go away" Discovered a nodule, did a NMUS - was NOT a hot nodule, but had continued worsening of her "spells" 1980 - had left sided thyroidectomy - started thyroid hormone replacement even before the s urgery "somewhere along the line I quit taking the medication" Underwent TAHBSO - "then my thyroid went off again" "I havent felt good about my thyroid for 8-10 years" 10 years ago had excessive weight gain. "Up until february of this year I could feel like I was having problems again" October went to PMD - "we reduced my dose" "Im back to the dry skin, more hair loss, has been to the hospital in february and March for carrie juany" Has lost 39 pounds since going in to the hospital because "I havent been feeling good and I havent been eating much." Energy levels fluctuate Has had hot flashes for "several years since age 40" - they've been worse ever since I star naima the pain medication "I have always had diarrhea since teenage years" "My voice has been getting froggier" Coleman 120mg daily Adherence: 99% Administration: proper "The reason I dont take synthroid is that it didn't work for me - it didn't change the labs or the way I feel" From 30s-40s took synthroid for 2 years and then I quit taking it because it didn't make an difference. Nodules was removed at age 32. Turned 40 and started having hot flashes and hair loss and dry skin Started Coleman at age 45 - has always been on 2 grains, except at one time had 3 grains BP has been higher in the past 8 years - "for most of my life 90/50" was her normal BP Sleep is "lousy" - I have trouble going to sleep, I wake up in the middle of the night - me latonin is the only thing that has worked Accompanied by The following portions of the patient's history were reviewed and updated as appropriate: a llergies, current medications, past family history, past medical history, past social histor y, past surgical history and problem list. Review of Systems Constitutional: Positive for fatigue. Negative for activity change, appetite change, diapho resis and unexpected weight change. HENT: Negative for hearing loss, rhinorrhea, sore throat, trouble swallowing and voice julien ge. Eyes: Negative for redness and visual disturbance. Respiratory: Negative for cough, choking, chest tightness and shortness of breath. Cardiovascular: Negative for chest pain, palpitations and leg swelling. Gastrointestinal: Negative for abdominal distention, abdominal pain, constipation, diarrhea , nausea and vomiting. Endocrine: Positive for heat intolerance. Negative for cold intolerance. Genitourinary: Negative for dysuria, frequency and urgency. Menstrual problem: s/p hysterec . Musculoskeletal: Positive for arthralgias, back pain and myalgias. Negative for gait proble m, joint swelling, neck pain and neck stiffness. Skin: Negative for rash and wound. Neurological: Negative for dizziness, tremors, syncope, light-headedness, numbness and head aches. Psychiatric/Behavioral: Positive for decreased concentration, dysphoric mood and sleep dist urbance. The patient is nervous/anxious. Objective: Physical Exam Constitutional: She is oriented to person, place, and time. She appears well-developed and well-nourished. No distress. HENT: Head: Normocephalic and atraumatic. Right Ear: External ear normal. Left Ear: External ear normal. Nose: Nose normal. Mouth/Throat: Oropharynx is clear and moist. No oropharyngeal exudate. Eyes: Pupils are equal, round, and reactive to light. Conjunctivae and EOM are normal. Righ t eye exhibits no discharge. Left eye exhibits no discharge. No scleral icterus. No proptosis, lid lag, or scleral injection noted Neck: Normal range of motion. Neck supple. No JVD present. No tracheal deviation present. N o thyromegaly present. Difficult to palpate thyroid +well-healed anterior cervical scar Cardiovascular: Normal rate, regular rhythm, normal heart sounds and intact distal pulses. Exam reveals no gallop and no friction rub. No murmur heard. Pulmonary/Chest: Effort normal and breath sounds normal. No stridor. No respiratory distres s. She has no wheezes. She has no rales. She exhibits no tenderness. Abdomina/Gl: Soft. Bowel sounds are normal. She exhibits no distension and no mass. There i s no tenderness. There is no rebound and no guarding. Central obesity Musculoskeletal: Normal range of motion. She exhibits no edema or tenderness. Lymphadenopathy: She has no cervical adenopathy. Neurological: She is alert and oriented to person, place, and time. She has normal reflexes . She displays normal reflexes. No cranial nerve deficit. She exhibits normal muscle tone. C oordination normal. +slight tremor with outstretched hands Skin: Skin is warm and dry. No rash noted. She is not diaphoretic. No erythema. No pallor. Psychiatric: She has a normal mood and affect. Her behavior is normal. Judgment and thought content normal. Nursing note and vitals reviewed. Component Latest Ref Rng & Units 11/07/2018 11/07/2018 11/07/2018 11/07/2018 9:40 AM 9:40 AM 9:40 AM 9:40 AM WBC 3.80 - 11.00 10*3/uL 5.04 RBC 3.70 - 5.10 10*6/uL 4.39 HGB 11.3 - 15.5 g/dL 14.0 HCT 34.0 - 46.0 % 42.2 MCV 80.0 - 100.0 fL 96.2 MCH 27.0 - 34.0 pg 31.9 MCHC 32.0 - 35.5 g/dL 33.1 RDW 37 - 53 fL 45.5 Platelets 150 - 400 10*3/uL 177 MPV fL 10.1 DIFF TYPE AUTOMATED NEUTROPHILS % 70.04 LYMPHOCYTES % 20.69 MONOCYTES % 7.51 EOSINOPHILS % 0.92 BASOPHILS % 0.84 NEUTROPHILS ABS 1.90 - 7.40 10*3/uL 3.53 LYMPHOCYTES ABS 1.00 - 3.90 10*3/uL 1.04 MONOCYTES ABS 0.00 - 0.80 10*3/uL 0.38 EOSINOPHILS ABS 0.00 - 0.50 10*3/uL 0.05 BASOPHILS ABS 0.00 - 0.10 10*3/uL 0.04 SODIUM 135 - 145 mmol/L 139 POTASSIUM 3.5 - 4.9 mmol/L 4.4 CHLORIDE 99 - 109 mmol/L 103 CO2 23 - 32 mmol/L 22 (L) ANION GAP AGAP 5 - 20 mmol/L 18 GLUCOSE 65 - 99 mg/dL 87 BUN 8 - 25 mg/dL 17 CREATININE 0.50 - 1.00 mg/dL 0.8 BUN/CREAT 21 CALCIUM 8.5 - 10.5 mg/dL 9.0 TOTAL PROTEIN 6.3 - 8.2 g/dL 6.7 ALBUMIN 3.3 - 4.8 g/dL 3.7 GLOBULIN 1.3 - 4.9 g/dL 3.0 A/G 1.0 - 2.4 1.2 TBIL 0.1 - 1.5 mg/dL 0.5 ALK PHOS 35 - 115 U/L 56 AST 10 - 45 U/L 22 ALT 10 - 65 U/L 33 EGFR >60 mL/min/1.73:m2 >60 TSH 0.450 - 5.100 u[iU]/mL 0.348 (L) FREE T4 0.7 - 1.5 ng/dL 1.1 FREE T3 2.18 - 3.98 pg/mL ACTH ASSAY pg/mL CORTISOL, AM 4.3 - 22.4 ug/dL Component Latest Ref Rng & Units 11/07/2018 11/07/2018 11/07/2018 9:40 AM 9:40 AM 9:40 AM WBC 3.80 - 11.00 10*3/uL RBC 3.70 - 5.10 10*6/uL HGB 11.3 - 15.5 g/dL HCT 34.0 - 46.0 % MCV 80.0 - 100.0 fL MCH 27.0 - 34.0 pg MCHC 32.0 - 35.5 g/dL RDW 37 - 53 fL Platelets 150 - 400 10*3/uL MPV fL DIFF TYPE NEUTROPHILS % LYMPHOCYTES % MONOCYTES % EOSINOPHILS % BASOPHILS % NEUTROPHILS ABS 1.90 - 7.40 10*3/uL LYMPHOCYTES ABS 1.00 - 3.90 10*3/uL MONOCYTES ABS 0.00 - 0.80 10*3/uL EOSINOPHILS ABS 0.00 - 0.50 10*3/uL BASOPHILS ABS 0.00 - 0.10 10*3/uL SODIUM 135 - 145 mmol/L POTASSIUM 3.5 - 4.9 mmol/L CHLORIDE 99 - 109 mmol/L CO2 23 - 32 mmol/L ANION GAP AGAP 5 - 20 mmol/L GLUCOSE 65 - 99 mg/dL BUN 8 - 25 mg/dL CREATININE 0.50 - 1.00 mg/dL BUN/CREAT CALCIUM 8.5 - 10.5 mg/dL TOTAL PROTEIN 6.3 - 8.2 g/dL ALBUMIN 3.3 - 4.8 g/dL GLOBULIN 1.3 - 4.9 g/dL A/G 1.0 - 2.4 TBIL 0.1 - 1.5 mg/dL ALK PHOS 35 - 115 U/L AST 10 - 45 U/L ALT 10 - 65 U/L EGFR >60 mL/min/1.73:m2 TSH 0.450 - 5.100 u[iU]/mL FREE T4 0.7 - 1.5 ng/dL FREE T3 2.18 - 3.98 pg/mL 2.4 ACTH ASSAY pg/mL 11.6 CORTISOL, AM 4.3 - 22.4 ug/dL 19.6 SWETHA NGUYEN US THYROID HISTORY: 64 years. Female. 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 TECHNIQUE: Sonographic evaluation of the thyroid. COMPARISON: None. FINDINGS: Small ill-defined heterogeneous appearance to the thyroid. The right lobe of thyroid measur es 2.5 x 1.1 x 0.9 cm. Left lobe of the thyroid measures 2.4 x 1.0 x 0.8 cm. The thyroid ist hmus measures 0.3 cm. No thyroid nodule visualized. IMPRESSION: 1. Small thyroid gland. 2. No thyroid nodule. SWETHA NGUYEN MRI PITUITARY W WO CONTRAST 01/14/2015 3:08 PM HISTORY: Adrenal insufficiency and hypothyroidism. Concern for a pituitary mass. TECHNIQUE: Multiplanar MR imaging was performed through the pituitary gland without and with gadoliniu m. FINDINGS: No prior comparison. The pituitary gland measures approximately 11.8 x 12.5 x 2.1 mm. There is CSF intensity wit hin the sella turcica, consistent with a partially empty sella. There is a normally position ed posterior pituitary bright spot. Optic chiasm appears unremarkable. Pituitary stalk is mi dline. No pituitary masses are identified. IMPRESSION: 1. Partially empty sella. Otherwise negative pituitary MRI. BONE DENSITOMETRY 07/01/2015 1:55 PM HISTORY The patient is a 65 year old postmenopausal female. The patient reports to have taken Gluco corticoids. The patient also reports having Hypothyroidism. The patient does perform weightb earing exercise and does consume dairy products regularly. COMPARISON No priors are available for comparison. TECHNIQUE A bone mineral analysis was performed on the lumbar spine. The patient was scanned in the a nterior projection and wvndne-gn-ioidyquo values were drawn about the vertebral segments of L1 through L4 at the levels where accurate assessment was possible. A bone mineral analysis was also performed on the left hip with rzujgl-dg-yucxegkd areas including the femoral neck measured. From this data, a T score and a Z score were calculated. FINDINGS The AP lumbar and left hip scans are technically adequate. Date of Study: 07/01/2015 1:55 PM L1-L4 Vertebral Bodies BMD 0.931, t-score -1.1, z-score 0.7 PROXIMAL LEFT FEMUR BMD 0.879, t-score -0.5, z-score 0.7 IMPRESSION: 1. Bone density measurements of the lumbar spine consistent with osteopenia. 2. Bone density measurements of the left hip consistent with normal bone density. Osteopenia indicates that there is some increased risk of fracture. Weightbearing exercise and adequate dietary calcium intake are recommended. Further medical management should also be considered. Follow-up assessment in 24 months is recommended. BONE DENSITOMETRY 08/30/2017 10:38 AM HISTORY The patient is a 67 year old postmenopausal female. The patient reports to have taken Gluco corticoids. The patient also reports having Asthma. The patient does not perform weightbeari ng exercise and does consume dairy products regularly. COMPARISON Comparison was made to the most recent and earliest exams. TECHNIQUE A bone mineral analysis was performed on the lumbar spine. The patient was scanned in the a nterior projection and othkwq-zu-xfarxeml values were drawn about the vertebral segments of L1 through L4 at the levels where accurate assessment was possible. A bone mineral analysis was also performed on the left hip with ijqqmk-km-wmcpnjst areas including the femoral neck measured. From this data, a T score and a Z score were calculated. FINDINGS The AP lumbar and left hip scans are technically adequate. L1-L3 Vertebral Bodies 08/30/2017 10:38 AM BMD 1.044, t-score 0.2, z-score 2.1 07/01/2015 BMD 0.949, t-score -0.6, BMD change vs previous 10.0% PROXIMAL LEFT FEMUR 08/30/2017 10:38 AM BMD 0.903, t-score -0.3, z-score 1.0 07/01/2015 BMD 0.879, t-score -0.5, BMD change vs previous 2.8% FRACTURE RISK ASSESSMENT: 10 year probability for major osteoporotic fracture:10 % 10 year probabilty for hip fracture:0.6 % IMPRESSION: 1. Bone density measurements of the lumbar spine consistent with normal. L-4 was excluded due to hardware. 2. Bone density measurements of the left hip consistent with Normal. NOTE: Assessment involves low resolution imaging designed to assess for vertebral compress ion fractures only. * * * World Health Organization Diagnostic Clarification of Osteoporosis Normal Diagnosis: t-score 0.0 to -1.0 Osteopenia Diagnosis: t-score -1.0 to -2.5 Osteoporosis Diagnosis: t-score -2.5 to -5.0 Severe Osteoporosis Diagnosis: -2.5 to -5.0 plus clinical fracture * The T score represents how many standard deviations by which the patient's bone mass diff ers from the young normal (age 30) sex-matched reference standard. The Z score is the standa rd deviation difference as compared with an age and sex-matched reference standard (average for age). The Z score is not used in the diagnostic classification. * * Consider FDA-approved medical therapies in postmenopausal women and men aged 50 years a nd older, based on the following: * A hip or vertebral (clinical or morphometric ) fracture * T-score< -2.5 at the femoral neck or spine after appropriate evaluation to exclude second marti causes * Low bone mass ( T-score between -1.0 and -2.5 at the femoral neck or spine ) and a 10 yea r probability of a hip fracture >3% or a 10 year probability of a major osteoporosis-related fracture< 20% based on the [place]-adapted WHO algorithm. * Clinicians judgment and/or patient preferences may indicate treatment for people with 10- year fracture probabilities above and below these levels. Assessment and Plan: 68 y.o. female with PMHx significant hypothyroidism, COPD, asthma here for evaluation and m anagement of hypothyroidism, adrenal insufficiency, postmenopausal hot flashes, c/o fatigue Hypothyroidism: pt losing weight and decreasing estrogen, and as such has decreasing thyroi d hormone requirements -decrease LT4 to 75 mcg 6.5 pills per week -LT3 5mcg daily, continue -check TFTs again before next appointment -discussed that use of cytomel adjunct is not officially part of traditional guidelines, bu there have been recent clinical trials, expert opinion articles demonstrating potential us e in some patients. Additionally there appears to be biochemical data demonstrating the raeann pineda does not have receptor for LT4 making small doses of LT3 potentially reasonable in patient s with neurologic complaints. Counseled that she may experience side effects including tremo rs, palpitations, increased anxiety, hot flashes etc. They should contact the office if this occurs. -discussed proper administration -pt counseled regarding potential health ramifications of senior living overmedication with thyr oid hormone including afib/stroke and osteoporosis/fractures. Pt has also been counseled on the signs and symptoms of overmedication+undermedication with thyroid hormone and will call our office if experiencing any of these. Adrenal insufficiency: unclear if primary or secondary, ACTH is 6 which is lower than would be expected in true primary adrenal insufficiency. Also +with subnormal moises stim in the pa st --> +significant improvement INITIALLY in symptoms with low dose hydrocortisone replaceme nt initially though recently c/o worsening fatigue. Adrenal insufficiency Likely 2/2 opioid use and chronic use of inhalers etc with steroids in them. Pituitary MRI was normal. Pt in t he process of weaning off narcotics since the back surgery, thus is a reasonable time to att empt a weaning of the HC. She suspects that swelling, myalgia, and mood disturbances are lik jaja related to the steroid use. We discussed clearly that it would be very beneficial for he r overall health for her to NOT be on steroids if possible to wean off. Was able to wean off since Jul 2017 - tolerated the weaning process well. Will continue to monitor symptomatical ly in the future. Osteopenia: mild in the spine, hip BMD ok in Jul 2015. Improved on DEXA done in Aug 2017 = normal density -plan repeat perhaps Aug 2019 -encouraged calcium and vitD supplements. -discussed that the estrogen use is likely Helpful but again reiterated that we typically do not use estrogen as the primary treatment of osteopenia. Hot flashes: likely 2/2 pain meds/postmenopause. Previously took estradiol and it was not e ffective at helping hot flashes, and triggered ocular migraines. Changed to premarin 0.625 m g daily and has had some significant improvement in the hot flashes AND headaches. We had a very aicha/clear discussion about the potential health risks of using estrogen (increased bl ood clot/stroke/heart attack, and increased breast cancer etc), but pt wishes to continue wi th the estrogen replacement given the significant severity of her hot flashes. HOWEVER has been amenable to starting to try a slow taper. Remainder of patients medical conditions to be managed by primary care physician and other involved specialists. RTC approx 4 months with labs one week prior The patient voiced understanding and agreement with these plans and had no questions after our discussion. They were encouraged to call if there are any other questions or concerns in the future. I spent 25 minutes with this patient. Greater than 50% of the time (15 min) was spent in co unseling as detailed above. Swetha was seen today for hypothyroidism. Postoperative hypothyroidism - Comprehensive metabolic panel; Future - CBC w/auto diff (reflex to manual); Future - Cortisol, AM; Future - ACTH assay; Future - TSH; Future - Free T4; Future - Free T3; Future History of adrenal insufficiency - Comprehensive metabolic panel; Future - CBC w/auto diff (reflex to manual); Future - Cortisol, AM; Future - ACTH assay; Future - TSH; Future - Free T4; Future - Free T3; Future Osteopenia of spine - Comprehensive metabolic panel; Future - CBC w/auto diff (reflex to manual); Future - Cortisol, AM; Future - ACTH assay; Future - TSH; Future - Free T4; Future - Free T3; Future in this encounter Plan of Treatment +--------+---------+ + + + | Date | Type | Specialty | Care Team | Description | +--------+---------+ + + + | 03/20/ | Office | Endocrinology | Adri Cannon MD | | | 2019 | Visit | | [address] | | | | | | [place], [place] | | | | | | [address] | | | | | | | | +--------+---------+ + + + + +--------+ + + | Name | Priori | Associated Diagnoses | Order Schedule | | | ty | | | + +--------+ + + | Comprehensive metabolic panel | Routin | Postoperative | Expected: 02/12/2019 | | | e | hypothyroidism | (Approximate), | | | | History of adrenal | Expires: 11/14/2019 | | | | insufficiency | | | | | Osteopenia of spine | | + +--------+ + + | CBC w/auto diff (reflex to | Routin | Postoperative | Expected: 02/12/2019 | | manual) | e | hypothyroidism | (Approximate), | | | | History of adrenal | Expires: 11/14/2019 | | | | insufficiency | | | | | Osteopenia of spine | | + +--------+ + + | Cortisol, AM | Routin | Postoperative | Expected: 02/12/2019 | | | e | hypothyroidism | (Approximate), | | | | History of adrenal | Expires: 11/14/2019 | | | | insufficiency | | | | | Osteopenia of spine | | + +--------+ + + | ACTH assay | Routin | Postoperative | Expected: 02/12/2019 | | | e | hypothyroidism | (Approximate), | | | | History of adrenal | Expires: 11/14/2019 | | | | insufficiency | | | | | Osteopenia of spine | | + +--------+ + + | TSH | Routin | Postoperative | Expected: 02/12/2019 | | | e | hypothyroidism | (Approximate), | | | | History of adrenal | Expires: 11/14/2019 | | | | insufficiency | | | | | Osteopenia of spine | | + +--------+ + + | Free T4 | Routin | Postoperative | Expected: 02/12/2019 | | | e | hypothyroidism | (Approximate), | | | | History of adrenal | Expires: 11/14/2019 | | | | insufficiency | | | | | Osteopenia of spine | | + +--------+ + + | Free T3 | Routin | Postoperative | Expected: 02/12/2019 | | | e | hypothyroidism | (Approximate), | | | | History of adrenal | Expires: 11/14/2019 | | | | insufficiency | | | | | Osteopenia of spine | | + +--------+ + + as of this encounter Visit Diagnoses + + | Diagnosis | + + | Postoperative hypothyroidism - Primary | + + | Postsurgical hypothyroidism | + + | History of adrenal insufficiency | + + | Personal history of other endocrine, metabolic, and immunity disorders | + + | Osteopenia of spine | + +
--- OUTSIDE RECORDS SUMMARY | ~2019-01-14 | XMS | Clinical Summary ---
Demographics + + + | Address | [facility] [address] | | | [place] [address] | + + + | Home Phone | | + + + | Preferred Language | Unknown | + + + | Marital Status | | + + + | Spiritism Affiliation | 1009 | + + + | Race | Unknown | + + + | Ethnic Group | Unknown | + + + Author + + + | Author | [facility] | + + + | Organization | [facility] | + + + | Address | Unknown | + + + | Phone | Unavailable | + + + Support + + + + + | Name | Relationship | Address | Phone | + + + + + | James Nguyen | [address] | | | [place] | | [place] [address] | | + + + + + [...] Team Providers + +------+ + | Care Parking Control Officer Name | Role | Phone | + +------+ + | Elia Hernandez MD | PP | | + +------+ + Allergies + + + + + + | Active Allergy | Reactions | Severity | Noted | Comments | | | | | Date | | + + + + + + | Acetaminophen | Hives, Diarrhea | High | 02/25/20 | uncontrollable | | | | | 14 | diarrhea | + + + + + + | Bee Venom | Itching | Medium | 05/28/20 | Every time there | | | | | 14 | is a larger and | | | | | | larger welt, now | | | | | | carries an epi-pen | + + + + + + | Gabapentin | Edema | Medium | 03/31/20 | | | | | | 17 | | + + + + + + | Latex | Hives | High | 02/25/20 | | | | | | 14 | | + + + + + + | Pregabalin | Edema | Medium | 03/31/20 | | | | | | 17 | | + + + + + + | Methocarbamol | Anaphylaxis, | High | 11/12/19 | Extreme shortness | | | Swelling | | 18 | of breath | + + + + + + | Other-Environmental | Shortness of Breath | High | 03/08/20 | Internal urticaria | | | | | 14 | due to any | | | | | | instrumentation done | | | | | | orally or | | | | | | internally. Causes | | | | | | airway compromise. | + + + + + + | Other-Animal | Hives | High | 06/21/20 | | | | | | 16 | | + + + + + + | Sulfa Antibiotics | Hives | High | | | + + + + + + | Adhesive Tape | Hives | High | 02/25/20 | | | | | | 14 | | + + + + + + Current Medications + + +--------+---------+------+------+-------+ | Prescription | Sig. | Disp. | Refills | Star | End | Statu | | | | | | t | Date | s | | | | | | Date | | | + + +--------+---------+------+------+-------+ | SYMBICORT 160-4.5 | | | | 12/2 | | Activ | | MCG/ACT inhaler | | | | 8/20 | | e | | | | | | 15 | | | + + +--------+---------+------+------+-------+ | tiZANidine | | | | 12/0 | | Activ | | (ZANAFLEX) 4 MG | | | | 1/20 | | e | | tablet | | | | 15 | | | + + +--------+---------+------+------+-------+ | tiotropium | Inhale 18 mcg into | | | | | Activ | | (SPIRIVA) 18 MCG | the lungs daily. | | | | | e | | inhalation capsule | | | | | | | + + +--------+---------+------+------+-------+ | arformoterol | 15 mcg. | | | | | Activ | | (BROVANA) 15 MCG/2ML | | | | | | e | | NEBU | | | | | | | + + +--------+---------+------+------+-------+ | VALERIAN ROOT PO | Take 400 mg by | | | | | Activ | | | mouth. | | | | | e | + + +--------+---------+------+------+-------+ | HYDROmorphone | Take 4 mg by mouth | | | | | Activ | | (DILAUDID) 4 MG | every 3 (three) | | | | | e | | tablet | hours as needed for | | | | | | | | Pain. | | | | | | + + +--------+---------+------+------+-------+ | potassium chloride | Take 20 mEq by | | | 07/1 | | Activ | | SA (TARA SOL) | mouth. | | | 8/20 | | e | | 20 MEQ tablet | | | | 17 | | | + + +--------+---------+------+------+-------+ | liothyronine | TAKE ONE TABLET BY | 30 | 11 | 03/ | | Activ | | (CYTOMEL) 5 MCG | MOUTH EVERY DAY | tablet | | /20 | | e | | tabletIndications: | | | | 18 | | | | Hypothyroidism | | | | | | | + + +--------+---------+------+------+-------+ | levothyroxine | Take 1 tablet by | 30 | 11 | 07/01 | 07/01 | Activ | | (SYNTHROID) 75 MCG | mouth every morning | tablet | | 06/19 | 06/19 | e | | tabletIndications: | before breakfast. | | | 18 | 19 | | | Hypothyroidism due | | | | | | | | to acquired atrophy | | | | | | | | of thyroid | | | | | | | + + +--------+---------+------+------+-------+ | buprenorphine | Place 2 mg under the | | | | | Activ | | (SUBUTEX) 2 MG SUBL | tongue every 6 | | | | | e | | | (six) hours as | | | | | | | | needed. | | | | | | + + +--------+---------+------+------+-------+ | PREMARIN 0.625 MG | TAKE ONE TABLET BY | 30 | 11 | 02/1 | | Activ | | tabletIndications: | MOUTH EVERY DAY | tablet | | 8/20 | | e | | Hot flash, | | | | 19 | | | | menopausal | | | | | | | + + +--------+---------+------+------+-------+ | PREMARIN 0.625 MG | TAKE ONE TABLET BY | 30 | 11 | 02/1 | 02 | Disco | | tabletIndications: | MOUTH EVERY DAY | tablet | | 3/20 | 8/20 | ntinu | | Hot flash, | | | | 18 | 19 | ed | | menopausal | | | | | | | + + +--------+---------+------+------+-------+ Active Problems + + + | Problem | Noted Date | + + + | Disorder of adrenal gland (HCC) | 03/21/2018 | + + + | History of migraine headaches | 03/21/2018 | + + + | Obstructive sleep apnea on CPAP | 03/21/2018 | + + + + + | Overview: Overview: On CPAP. On day of surgery 09/30/2016 for | | TLIF, patient acknowledges she has been using much less | | frequently lately. | + + + + + | Primary fibromyalgia syndrome | 03/21/2018 | + + + | Spinal stenosis of lumbar region | 03/21/2018 | + + + + + | Overview: Overview: | | Problem List Talent Management Specialist Utility | + + + + + | S/P cervical spinal fusion | 02/01/2018 | + + + | H/O allergy to latex | 11/11/2017 | + + + | Cervical subluxation, subsequent encounter | 09/17/2017 | + + + | Cervical myelopathy (HCC) | 08/24/2016 | + + + | Cervical radiculopathy | 08/24/2016 | + + + + + | Overview: Overview: | | Cervical radiculopathy (M54.12), | | Cervical myelopathy (HCC) (G95.9), | | Foraminal stenosis of cervical region (M99.81), | | Cervical subluxation, subsequent encounter (S13.100D), | | Sacroiliac joint pain (M53.3) | + + + + + | Lumbar radiculopathy | 08/24/2016 | + + + | Adrenal insufficiency | 08/27/2014 | + + + | Hypothyroidism | 05/10/2014 | + + + | Asthma | 03/08/2014 | + + + | Empyema lung | 03/08/2014 | + + + | Obstructive chronic bronchitis with exacerbation (HCC) | 02/26/2014 | + + + | Exudative pleural effusion | 02/24/2014 | + + + | Acute respiratory failure (HCC) | 02/24/2014 | + + + | Acute kidney injury (HCC) | 02/24/2014 | + + + | Leucocytosis | 02/24/2014 | + + + | COPD (chronic obstructive pulmonary disease) | | + + + + + | Overview: FEV1 of 72% 11/28/13 | + + Encounters +--------+ + + + + | Date | Type | Specialty | Care Team | Description | +--------+ + + + + | 01/12/ | Telephone | | Adri Cannon MD | Triage (thyroid | | 2019 | | | | crisis) | +--------+ + + + + | 12/18/ | Refill | | Adri Cannon MD | Hot flash, | | 2018 | | | | menopausal | +--------+ + + + + | 11/14/ | Office | | Adri Cannon MD | Postoperative | | 2018 | Visit | | | hypothyroidism | | | | | | (Primary Dx); | | | | | | History of adrenal | | | | | | insufficiency; | | | | | | Osteopenia of spine | +--------+ + + + + | 11/07/ | Lab | | Valeria Johnson | Postoperative | | 2018 | Requisition | | A, Internal Medicine Nurse | hypothyroidism; | | | | | | History of adrenal | | | | | | insufficiency; | | | | | | Osteopenia of spine | +--------+ + + + + from Last 3 Months Immunizations + + + + | Name | Dates Previously Given | Next Due | + + + + | INFLUENZA W/PRESERV | 09/26/2018 | | | QUADRIVALENT | | | | (MULTIDOSE) | | | + + + + | Influenza, Trivalent | 08/20/2014 | | | W/Preservative | | | + + + + | Pneumococcal | 03/11/2014 | | | Polysaccharide | | | | 23-valent | | | + + + + Family History + + +------+ + | Medical History | Relation | Name | Comments | + + +------+ + | Breast cancer | Sister | | | + + +------+ + + +------+--------+ + | Relation | Name | Status | Comments | + +------+--------+ + | Sister | | | | + +------+--------+ + Social History + +-------+ +--------+ + [...] | | | + +---+---+---+ + + | Tobacco Cessation: Counseling Given: No | + + + + +---------+ + | Alcohol Use [...] + + + + | Temperature | 36.4 C (97.6 F) | 02/21/2018 10:08 AM PDT | + + + + | Respiratory Rate | 16 | 08/11/2016 6:48 PM PDT | + + + + | Oxygen Saturation | 96% | 11/14/2018 10:16 AM PST | + + + + | Inhaled Oxygen | - | - | | Concentration | | | + + + + | Weight | 85.3 kg (188 lb) | 11/14/2018 10:16 AM PST | + + + + | Height | 162.6 cm (5' 4") | 11/26/2014 9:38 AM PST | + + + + | Body Mass Index | 32.27 | 11/14/2018 10:16 AM PST | + + + + Plan of Treatment +--------+---------+ + + + | Date | Type | Specialty | Care Team | Description | +--------+---------+ + + + | 03/20/ | Office | | Adri Cannon MD | | | 2019 | Visit | | [address] | | | | | | [place] | | | | | | [address] | | | | | | | | +--------+---------+ + + + + + + + + | Health Maintenance | Due Date | Last Done | Comments | + + + + + | Vaccine: Zoster (1 | | | | | of 2) | 0 | | | + + + + + | DEXA SCAN SCREENING | | 08/30/2017, 07/01/2015 | | | | 9 | | | + + + + + | Vaccine: Influenza | Completed | 09/26/2018, 08/20/2014 | | + + + + + Procedures + +--------+ + + + | [...] | | + +--------+ + + + from Last 3 Months Results Cortisol, AM (11/07/2018 9:40 AM) + [...] | + + + + + | [facility] | [address] | [place] [address] | [phone] | | LABORATORY | Blvd. | | [...] + + | LABORATORY | [address] | [place] [address] | | | CORPORATION OF | | [...] + + + | [facility] | [address] | [place] [address] | [phone] | | LABORATORY | Blvd. | | [...] + + + | [facility] | [address] | [place] [address] | [phone] | | LABORATORY | Blvd. | | [...] + + + | [facility] | [address] | [place] [address] | [phone] | | LABORATORY | Blvd. | | [...] + + + + | [facility] | [address] | [place] [address] | [phone] | | LABORATORY | Blvd. | | [...] 33 | 10 - 65 U/L | [facility] | | | | | LABORATORY | + + + + + | EGFR | >60Comment: GFR <60: | >60 mL/min/1.73_m2 | [facility] | | | CHRONIC KIDNEY DISEASE, [...] + + + | [facility] | [address] | [place] [id number] | [phone] | | LABORATORY | Blvd. | | | + + + + + from Last 3 Months Insurance + +--------+ +------+ + + | Payer | Benefi | Subscriber | Type | Phone | Address | | | t Plan | ID | | | | | | / | | | | | | | Group | | | | | + +--------+ +------+ + + | MEDICARE | MEDICA | [id number] | | | [address] | | | RE | | | | [place] [phone] | | | IP-OP | | | | | + +--------+ +------+ + + | ASDASIAS | ASDASIAS | [id number] | | [phone] | | | | | | [phone] | | | | NORTHW | | | | | | | EST | | | | | | | HEALTH | | | | | + +--------+ +------+ + + | ALLI - BAHMAN - | CHAMPV | [id number] | | | [address] [address] | | | A | | | | [place] | | | | | | | [phone] | + +--------+ +------+ + + + +--------+ +--------+ + + | Guarantor Name | Accoun | Relation to | Date | Phone | Billing Address | | | t Type | Patient | of | | | | | | | | | | + +--------+ +--------+ + + | SWETHA NGUYEN | Person | Self [birth year] Home: | [address] | | E | al/Fam | | 1950 | [phone] | [place] [address] | | | humble | | | [phone] | | + +--------+ +--------+ + +
--- OUTSIDE RECORDS SUMMARY | ~2019-01-14 | XMS | Clinical Summary ---
Demographics + + + | Address | [facility] [address] | | | [place] [address] | + + + | Home Phone | | + + + | Preferred Language | Unknown | + + + | Marital Status | | + + + | Baptist Affiliation | 1009 | + + + | Race | Unknown | + + + | Ethnic Group | Unknown | + + + Author + + + | Author | [facility] | + + + | Organization | [facility] | + + + | Address | Unknown | + + + | Phone | Unavailable | + + + Support + + + + + | Name | Relationship | Address | Phone | + + + + + | James Nguyen | [address] | | | [place] | | [place] [address] | | + + + + + [...] Team Providers + +------+ + | Care Truck Unloader Name | Role | Phone | + [...] | Overview: Overview: | | Problem List Steam Hand Utility | + + + + + [...] | 2018 | Requisition | | A, Logging Assistant | hypothyroidism; | | | | | [...] [place] | | | | | | [address] | | | | | | | [...] | + + + + + | [facility] | [address] | [place] [address] | [phone] | | LABORATORY | Blvd. | | [...] | [address] | [place] [address] | | | CORPORATION OF | | [...] + + + | [facility] | [address] | [place] [address] | [phone] | | LABORATORY | Blvd. | | [...] + + + | [facility] | [address] [place] [address] | [place] [address] | [phone] | | LABORATORY | Blvd. | | [...] + + + | [facility] | [address] [place] [address] | [place] [address] | [phone] | | LABORATORY | Blvd. | | [...] + + + + | [facility] | [address] [place] [address] | [place] [address] | [phone] | | LABORATORY | Blvd. | | [...] >60Comment: GFR <60: | >60 mL/min/1.73_m2 | [facility] | | | CHRONIC KIDNEY DISEASE, [...] + + + | [facility] | [address] | [place] [id number] | [phone] | | LABORATORY | Blvd. | | [...] + + | MEDICARE | MEDICA | [id number] | | | [address] | | | RE | | | | [place] [address] | | | IP-OP | | | | | + +--------+ +------+ + + | ASDASIAS | ASDASIAS | [id number] | | [phone] | | | | | | [phone] | | | | NORTHW | | | | | | | EST | | | | | | | HEALTH | | | | | + +--------+ +------+ + + | ALLI - BAHMAN - | CHAMPV | [id number] | | | [address] [address] | | | A | | | | [place] | | | | | | | [phone] | + +--------+ +------+ + + + [...] E | al/Fam | | 1950 | [phone] | [place] [address] | | | humble | | | [address] | | + +--------+ +--------+ + +
--- OUTSIDE RECORDS SUMMARY | ~2019-01-14 | XMS | Clinical Summary ---
Demographics + + + | Address | [facility] [address] | | | [facility] [address] | + + + | Home Phone | | + + + | Preferred Language | Unknown | + + + | Marital Status | | + + + | Temple Affiliation | 1009 | + + + | Race | Unknown | + + + | Ethnic Group | Unknown | + + + Author + + + | Author | [facility] | | | and [place] | + + + | Organization | [facility] | | | and [...] | th A | | [place] [address] | | + + + + + | Dottie Nguyen | ECON | Unknown | Unavailable | | e | | | | + + + + + Care Team Providers + +------+ + | Care Cook Fry Name | Role | Phone | + +------+ + | King Nagel MD | PP | | + +------+ [...] + + + + + + | [place] | | | 11/13/19 | | | | | | 18 | | + + + + + + | Methocarbamol | Swelling, | High | 11/12/19 | Extreme shortness | | | Anaphylaxis | | 18 | of breath Had SOB | + + + + + + | [place] | Hives | Medium | 11/11/19 | [...] + + + + + + | [place] | | | 11/13/19 | | | [...] +---+ + + | Overview: Problem List Hardness Inspector Utility | + + + +---+ | [...] Left: | RTI | | 05/28/ | [id number] | | [id number]: Qty: 1 | | Spine | BIOLOGICS | | 2020 | | | on 09/30/2016 by Ric Gould | | Lumbar | INC - RBIO | | | /[id number] | | MD Ramos | | | | | | 2-028 | | | | | | | | / | + +--------+--------+ +--------+--------+--------+ | Imp Spn Spcr 6 Deg 10x27 - | Generi | Left: | [employer] - | | 03/30/ | [id number] | | [id number]: Qty: 1 on | c | Spine | MEDT | | 4 | 7 / | | 09/30/2016 by Ric Gould, | | Lumbar | | | | /51CC | | MD | | | | | | | + +--------+--------+ +--------+--------+--------+ | Parth Perc Str Ccm [id number] - | Generi | Left: | [employer] - | | | 080834 | | [id number]: Qty: 2 on | c | Spine | MEDT | | | 035 / | | 09/30/2016 by Ric Gould, | | Lumbar | | | | / | | MD | | | | | | | + +--------+--------+ +--------+--------+--------+ | Imp Spn Plt Ti Zevo 19mm 1lvl | Generi | N/A: | [employer] - | | | [id number] | | - [id number]: Qty: 1 | c | Spine | MEDT | | | 9 / / | | on 11/11/2017 by Ric Gould | | Cervic | | | | | | MD Ramos | | al | | | | | + +--------+--------+ +--------+--------+--------+ | Imp Sangeeta Shore [id number] - | Generi | N/A: | [employer] - | | 07/26/ | [id number] | | [id number]: Qty: 1 | c | Spine | MEDT | | 2024 | 1 / | | on 11/11/2017 by Ric Gould | | Bill | | | | /[id number] | | MD Ramos | | al | | | | | + +--------+--------+ +--------+--------+--------+ | Graft Infuse Bone Kit Xs - | Graft | Left: | SOFAMOR | | 09/29/ | [id number] | | [id number]: Qty: 1 on | | Spine | DANEK - DIV | | 2016 | 0 / | | 09/30/2016 by Ric Gould, | | Lumbar | [employer] | | | /[id number] | | | | | - SFDK | | | [id number] | + +--------+--------+ +--------+--------+--------+ | Sb Alan Pls c Aseptic | Graft | N/A: | [employer] - | | 04/15/ | [id number] | | - [id number]: Qty: | | Spine | MEDT | [...] Left: | [employer] - | | | [id number] | | [id number]: Qty: 4 | | Spine | MEDT | | | 0 / / | | on 09/30/2016 by Ric Gould | | Lumbar | | | | | | MD Ramos | | | | | | | + +--------+--------+ +--------+--------+--------+ | Screw 4.75 Xtb Yudelka Mas | Screw | Left: | [employer] - | | | [id number] | | 7.5x50 - [id number]: | | Spine | MEDT | | | [id number] | | Qty: 4 on 09/30/2016 by Bryanna, | | Lumbar | | | | / / | | Ric Beasley MD | | | | | | | + +--------+--------+ +--------+--------+--------+ | Screw D-Thrd Slf-Drl 3.5x13mm | Screw | N/A: | [employer] - | | | [id number] | | - [id number]: Qty: 4 | | Spine | MEDT [...] +--------+ +---------+ | MEDICARE | MEDICA | [id number] | Medica | [phone] | | | RE | | re | [phone] | | | | PART A | | | | | | | AND B | | | | | + +--------+ +--------+ +---------+ | | CHAMPV | [id number] | Indemn | [phone] | | | | A | | [...] KAREN | al/Emmanuel | | 1950 | [phone] | [place] [address] | | | humble | | | [address] | | + +--------+ +--------+ + +
--- OUTSIDE RECORDS SUMMARY | ~2019-01-14 | XMS | Encounter Summary ---
Demographics + + + | Address | [facility] [address] | | | [place] [address] | + + + | Home Phone | | + + + | Preferred Language | Unknown | + + + | Marital Status | | + + + | Adventism Affiliation | 1009 | + + + | Race | Unknown | + + + | Ethnic Group | Unknown | + + + Author + + + | Author | [facility] | + + + | Organization | [facility] | + + + | Address | Unknown | + + + | Phone | Unavailable | + + + Support + + + + + | Name | Relationship | Address | Phone | + + + + + | James Nguyen | [address] | | | [place] | | [place] [address] | | + + + + + | Dottie gNuyen | ECON | Unknown | | | e | | | | + + + + + | Maria Alejandra Almonte | ECON | Unknown | | + + + + + | Hema Nagel | ECON | Unknown | | + + + + + Care Team Providers + +------+ + | Care Wholesale Diamond Broker Name | Role | Phone | + [...] | [address] | A, Data Reporting Analyst | hypothyroidism; | | | | [place] [address] | | History of adrenal | | | | [phone] | | insufficiency; | | | | [...] [place] | | | | | | [address] | | | | | | | [...] | + + + + + | [facility] | [address] | [place] [address] | [phone] | | LABORATORY | Blvd. | | [...] | [address] | [place] [address] | | | CORPORATION OF | | [...] | + + + + + | [facility] | [address] | [place] [address] | [phone] | | LABORATORY | Blvd. | | [...] + + + | [facility] | [address] | [place] [address] | [phone] | | LABORATORY | Blvd. | | [...] + + + | [facility] | [address] | [place] [address] | [phone] | | LABORATORY | Blvd. | | [...] + + + | [facility] | [address] | [place] [address] | [phone] | | LABORATORY | Blvd. | | [...] 33 | 10 - 65 U/L | [facility] | | | | | LABORATORY | + + + + + | EGFR | >60Comment: GFR <60: | >60 mL/min/1.73_m2 | [facility] | | | CHRONIC KIDNEY DISEASE, | [...] | + + + + + | [facility] | [address] | [place] [address] | [phone] | | LABORATORY | Blvd. | | [...]
--- OUTSIDE RECORDS SUMMARY | ~2019-01-14 | XMS | Encounter Summary ---
Demographics + + + | Address | [facility] [address] | | | [place] [address] | + + + | Home Phone | | + + + | Preferred Language | Unknown | + + + | Marital Status | | + + + | Religion Affiliation | 1009 | + + + | Race | Unknown | + + + | Ethnic Group | Unknown | + + + Author + + + | Author | [facility] | + + + | Organization | [facility] | + + + | Address | Unknown | + + + | Phone | Unavailable | + + + Support + + + + + | Name | Relationship | Address | Phone | + + + + + | James Nguyen | [address] | | | [place] | | [place] [address] | | + + + + + [...] Team Providers + +------+ + | Care Remelt Furnace Expediter Name | Role | Phone | + [...] + + | 11/14/ | Office | [facility] | Adri Cannon MD | Postoperative | | 2019 | Visit | Endocrinology [address] | [address] | hypothyroidism | | | | Cecily [place] A | [place], [place] | (Primary Dx); | | | | [place], [place] | [address] | History of adrenal | | | | [address] | | insufficiency; | | | | [phone] | | Osteopenia of spine | +--------+---------+ [...] 10:30 AM PSTDecrease 6.5 pills per w lime of the 75mcg levothyroxine tabs. Im in [...] CPAP and valerian Does not see a attacher Accompanied by Thyroid Problem Presents for follow-up [...] years" "My voice has been getting froggier" Sidell 120mg daily Adherence: 99% Administration: proper "The [...] and hair loss and dry skin Started Sidell at age 45 - has always been [...] scanned in the a nterior projection and bxuxvs-qw-njdoyaqw values were drawn about the vertebral segments of L1 through L4 at the levels where accurate assessment was possible. A bone mineral analysis was also performed on the left hip with jsyghv-yl-qfjxqokw areas including the femoral neck measured. From [...] scanned in the a nterior projection and ofouli-hf-tdmokjyw values were drawn about the vertebral segments of L1 through L4 at the levels where accurate assessment was possible. A bone mineral analysis was also performed on the left hip with qosuhg-pt-umajbqxy areas including the femoral neck measured. From [...] -pt counseled regarding potential health ramifications of jail overmedication with thyr oid hormone including afib/stroke [...] | | | | | | [place], [place] | | | | | | [address] | | | | | | | [...]
[~2019-01-14 11:41] MED LIST: 5-HTP100 MG PO; CYTOMEL5 MCG PO; INCRUSE ELLI62.5 MCG IH; MACROBID 100 M100 MG PO; MELATONIN5 M2 PO; OMEPRAZOLE20 MG PO; PREMARIN0.625 MG PO; SYMBICORT 16010.2 GM INH; TIROSINT75 MCG PO; TIZANIDINE HCL4 M1 PO; VALERIAN ROOT500 MG PO; VENTOLIN HFA18 GM INH
--- OUTSIDE RECORDS SUMMARY | 2019-01-14 11:44 | XMS ---
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 Cadence VISIT COUNT (12 MO.) 2 [facility] TOTAL 2 NOTE: Visits indicate total known visits. ED/UCC VISIT TRACKING (12 MO.) 01/14/2019 11:42 [facility] [place] TYPE: Emergency COMPLAINT: - URINE PROBLEM 01/12/2019 10:48 [facility] [place] TYPE: Emergency COMPLAINT: - DIARRHEA INPATIENT VISIT TRACKING (12 MO.) No inpatient visits to display in this time frame [id number]
[2019-01-14] MEDS ORDERED: NITROFURANTOIN100 M1 PO (12:31)
== END 2019-01-14 15:15 | disposition home or self-care (01) ==
LOC: ED 11:41
PROC: 0T9B70Z Drainage of Bladder with Drainage Device, Via Natural or Artificial Opening (ICD-10-PCS; principal; 2019-01-14)
DX: K29.00 Acute gastritis without bleeding (principal); E03.9 Hypothyroidism, unspecified; J44.9 Chronic obstructive pulmonary disease, unspecified; Z87.891 Personal history of nicotine dependence; Z90.710 Acquired absence of both cervix and uterus; Z91.038 Other insect allergy status; Z88.0 Allergy status to penicillin; Z88.6 Allergy status to analgesic agent; Z91.09 Other allergy status, other than to drugs and biological substances; Z91.040 Latex allergy status; Z91.018 Allergy to other foods; Z88.5 Allergy status to narcotic agent; Z79.899 Other long term (current) drug therapy
CPT/HCPCS: 51701; 80053; 81001; 83690; 84484; 85025; 99284-25